=== PATIENT | male | born 1935 | race Caucasian/White ===

== ENCOUNTER 2019-11-23 14:06 | Emergency (ER) | payer MEDICARE, OTHER ==
--- NOTE | 2019-11-23 14:57 | EDM.PDOC ---
ED [facility] GENERAL MEDICAL PROBLEM - General Chief Complaint: ENT Problem Stated Complaint: SORE THROAT Time Seen by Provider: 11/23/19 14:09 - History of Present Illness INITIAL COMMENTS - FREE TEXT/NARRATIVE: HISTORY AND PHYSICAL: History of present illness: This 84-year-old male with a past medical history of hypertension, currently on anticoagulation with warfarin, and mild obesity presents emergency department with sore throat, swollen anterior cervical lymph nodes, and just not feeling well. Some runny nose. Has been taking precautions with the mask and whenever he goes into buildings wearing a mask. No known exposures to COVID-19. He does not know his current INR. He also reports, incidentally, that he fell 2 months ago landing on his back from a stepstool. He states since then he continues to have thoracic and lumbar spine pain. No radicular pain. No loss of bowel or bladder function. Review of systems: A 10-point review of systems, other than pertinent positives and negatives as stated per HPI, is otherwise negative. Past medical history: As per history of present illness and as reviewed below otherwise noncontributory. Surgical history: As per history of present illness and as reviewed below otherwise noncontributory. Social history: No reported history of drug or alcohol abuse. Family history: As per history of present illness and as reviewed below otherwise noncontributory. Physical exam: VITAL SIGNS: Reviewed. GENERAL: Very mildly ill-appearing. HEAD: No signs of head trauma. EYES: Pupils are equal. Extraocular motions intact. EARS: Hearing grossly intact. MOUTH: Oropharynx is normal. NECK: Bilateral anterior cervical lymphadenopathy. No jugular venous distention. CHEST: Chest with clear breath sounds bilaterally. No wheezes, rales, or rhonchi. CARDIAC: Regular rate and rhythm. Normal S1 and S2, without murmurs, gallops, or rubs. VASCULAR: Peripheral pulses normal and equal in all extremities. ABDOMEN: Soft, without detectable tenderness. No sign of distention. No rebound or guarding, and no masses palpated. MUSCULOSKELETAL: Good range of motion of all major joints. Extremities without clubbing, cyanosis or edema. NEUROLOGIC EXAM: Alert and oriented x 3. No focal sensory or motor deficits. Speech normal. Follows commands. PSYCHIATRIC: Mood normal. SKIN: No rash or lesions. BACK:Tenderness in the midthoracic and lower lumbar area Initial Differential Diagnosis & Plan: Low probability for COVID-19. Other etiologies including viral URI/pharyngitis considered. Essentially no tonsillar tissue is visible on exam. Some mild erythema. I feel that strep throat is very unlikely. We will test the patient for COVID-19. He is on warfarin so we will check his labs and given his probability for COVID will also check baseline labs. We will also get a chest x-ray, CT of the lumbar and thoracic spine. Definitive disposition and diagnosis as appropriate pending reevaluation and review of above. throat Pain Score (Numeric/FACES): 4 - Related Data Allergies Allergy/AdvReac Type Severity Reaction Status Date / Time celecoxib [From Celebrex] Allergy Hives Verified 11/23/19 14:24 Home Meds: Home Meds Furosemide [Lasix] 20 mg PO DAILY 11/30/13 [History] Glimepiride [Amaryl] 2 mg PO DAILY 11/30/13 [History] Isosorbide Mononitrate [Isosorbide Mononitrate ER] 60 mg PO DAILY 11/30/13 [History] Simvastatin [Zocor] 40 mg PO BEDTIME 11/30/13 [History] amLODIPine Besylate [Amlodipine Besylate] 5 mg PO DAILY 11/30/13 [History] Aspirin [Bro[place]nn Chewable] 81 mg PO DAILY 07/28/15 [History] Famotidine 40 mg PO BEDTIME 07/28/15 [History] Potassium Gluconate [Potassium] 250 mg PO DAILY 07/28/15 [History] Cyanocobalamin (Vitamin B-12) [B-12] 1,000 mcg PO DAILY 08/03/17 [History] Donepezil [Aricept] 10 mg PO BEDTIME 08/03/17 [History] Metoprolol Tartrate 100 mg PO BIDMEALS 08/03/17 [History] Warfarin [Coumadin] 7.5 mg PO SUTUTHSA@1400 08/03/17 [History] Tolterodine Tartrate [Tolterodine Tartrate ER] 4 mg PO BEDTIME 06/25/19 [History] Warfarin [Coumadin] 5 mg PO MOWEFR@1400 06/25/19 [History] Past Medical History HEENT History: Reports: Impaired Vision, Other (See Below) Other HEENT History: wearing spectacles, wearing hearing aids Cardiovascular History: Reports: Afib, High Cholesterol, Hypertension, Stents Other Cardiovascular History: Stenting Respiratory History: Reports: None Gastrointestinal History: Reports: None Genitourinary History: Reports: Prostate Disorder Musculoskeletal History: Reports: None Neurological History: Reports: None Psychiatric History: Reports: None Endocrine/Metabolic History: Reports: Diabetes, Type II Hematologic History: Reports: None Immunologic History: Reports: None Oncologic (Cancer) History: Reports: Prostate Dermatologic History: Reports: None - Infectious Disease History Infectious Disease History: Reports: Chicken Pox Other Infectious Disease History: Hepatitis - Past Surgical History Cardiovascular Surgical History: Reports: Coronary Artery Stent Male Surgical History: Reports: Other (See Below) Social & Family History - Family History Family Medical History: Noncontributory - Tobacco Use Smoking Status *Q: Never Smoker - Caffeine Use Caffeine Use: Reports: Coffee - Recreational Drug Use Recreational Drug Use: No ED ROS ENT - Review of Systems Review Of Systems: See Below (noted) ED EXAM, ENT - Physical Exam Exam: See Below (noted) Course - Vital Signs Text/Narrative:: COVID is negative. Labs are essentially normal. Given these findings I feel the patient can be discharged home. I spoke to the and informed her of the results. His CTs are negative for fracture. He is ambulatory and otherwise feeling well. Likely a viral pharyngitis. No evidence of peritonsillar abscess, deep space infection, or other life-threatening emergency. Last Recorded V/S: Last Vital Signs Temp 97.2 F 11/23/19 14:22 Pulse 91 11/23/19 14:22 Resp 18 11/23/19 14:22 BP 167/68 H 11/23/19 14:22 Pulse Ox 95 11/23/19 14:22 - Orders/Labs/Meds Orders: Active Orders 24 hr Category Date Time Status CXR [Chest 2V] [CR] Stat Exams 11/23/19 14:48 Taken Labs: Laboratory Tests 11/23/19 11/23/19 11/23/19 Range/Units 15:05 15:05 15:05 WBC 7.51 (4.0-11.0) K/uL RBC 4.78 (4.50-5.90) M/uL Hgb 15.7 (13.0-17.0) g/dL Hct 46.5 (38.0-50.0) % MCV 97.3 (80.0-98.0) fL MCH 32.8 H (27.0-32.0) pg MCHC 33.8 (31.0-37.0) g/dL RDW Std Deviation 45.6 (28.0-62.0) fl RDW Coeff of Heidi 13 (11.0-15.0) % Plt Count 192 (150-400) K/uL MPV 11.10 (7.40-12.00) fL Neut % (Auto) 70.2 (48.0-80.0) % Lymph % (Auto) 18.2 (16.0-40.0) % [place] % (Auto) 8.9 (0.0-15.0) % Eos % (Auto) 2.3 (0.0-7.0) % Baso % (Auto) 0.4 (0.0-1.5) % Neut # (Auto) 5.3 (1.4-5.7) K/uL Lymph # (Auto) 1.4 (0.6-2.4) K/uL [place] # (Auto) 0.7 (0.0-0.8) K/uL Eos # (Auto) 0.2 (0.0-0.7) K/uL Baso # (Auto) 0.0 (0.0-0.1) K/uL Nucleated RBC % 0.0 /100WBC Nucleated RBCs # 0 K/uL INR 1.25 Sodium 141 (136-148) mmol/L Potassium 3.8 (3.5-5.1) mmol/L Chloride 104 (98-107) mmol/L Carbon Dioxide 28.2 (21.0-32.0) mmol/L BUN 11 (7.0-18.0) mg/dL Creatinine 1.1 (0.8-1.3) mg/dL Est Cr Clr Drug Dosing 53.46 mL/min Estimated GFR (MDRD) > 60.0 ml/min Glucose 265 H (74-106) mg/dL Calcium 8.9 (8.5-10.1) mg/dL Ferritin (26-388) ng/mL Total Bilirubin 1.3 H (0.2-1.0) mg/dL AST 18 (15-37) IU/L ALT 11 L (14-63) IU/L Alkaline Phosphatase 62 (46-116) U/L Lactate Dehydrogenase 169 (81-234) U/L C-Reactive Protein 0.30 (0.00-0.90) mg/dL B-Natriuretic Peptide (<100) PG/ML Total Protein 7.0 (6.4-8.2) g/dL Albumin 3.7 (3.4-5.0) g/dL Globulin 3.3 (2.6-4.0) g/dL Albumin/Globulin Ratio 1.1 (0.9-1.6) COVID-19 (FRITZ) (NEGATIVE) 11/23/19 11/23/19 11/23/19 Range/Units 15:05 15:05 15:40 WBC (4.0-11.0) K/uL RBC (4.50-5.90) M/uL Hgb (13.0-17.0) g/dL Hct (38.0-50.0) % MCV (80.0-98.0) fL MCH (27.0-32.0) pg MCHC (31.0-37.0) g/dL RDW Std Deviation (28.0-62.0) fl RDW Coeff of Heidi (11.0-15.0) % Plt Count (150-400) K/uL MPV (7.40-12.00) fL Neut % (Auto) (48.0-80.0) % Lymph % (Auto) (16.0-40.0) % [place] % (Auto) (0.0-15.0) % Eos % (Auto) (0.0-7.0) % Baso % (Auto) (0.0-1.5) % Neut # (Auto) (1.4-5.7) K/uL Lymph # (Auto) (0.6-2.4) K/uL [place] # (Auto) (0.0-0.8) K/uL Eos # (Auto) (0.0-0.7) K/uL Baso # (Auto) (0.0-0.1) K/uL Nucleated RBC % /100WBC Nucleated RBCs # K/uL INR Sodium (136-148) mmol/L Potassium (3.5-5.1) mmol/L Chloride (98-107) mmol/L Carbon Dioxide (21.0-32.0) mmol/L BUN (7.0-18.0) mg/dL Creatinine (0.8-1.3) mg/dL Est Cr Clr Drug Dosing mL/min Estimated GFR (MDRD) ml/min Glucose (74-106) mg/dL Calcium (8.5-10.1) mg/dL Ferritin 543 H (26-388) ng/mL Total Bilirubin (0.2-1.0) mg/dL AST (15-37) IU/L ALT (14-63) IU/L Alkaline Phosphatase (46-116) U/L Lactate Dehydrogenase (81-234) U/L C-Reactive Protein (0.00-0.90) mg/dL B-Natriuretic Peptide 273 H (<100) PG/ML Total Protein (6.4-8.2) g/dL Albumin (3.4-5.0) g/dL Globulin (2.6-4.0) g/dL Albumin/Globulin Ratio (0.9-1.6) COVID-19 (FRITZ) NEGATIVE (NEGATIVE) Departure - Departure Time of Disposition: 16:51 Disposition: Home, Self-Care 01 Condition: Good Clinical Impression: Pharyngitis Fall Qualifiers: Encounter type: initial encounter Qualified Code(s): W19.XXXA - Unspecified fall, initial encounter - Discharge Information *PRESCRIPTION DRUG MONITORING PROGRAM REVIEWED*: Not Applicable *COPY OF PRESCRIPTION DRUG MONITORING REPORT IN PATIENT KIESHA: Not Applicable Instructions: Pharyngitis Referrals: Rohan Long MD [Primary Care Provider] - Forms: ED Department Discharge Additional Instructions: The following information is given to patients seen in the emergency department who are being discharged to home. This information is to outline your options for follow-up care. We provide all patients seen in our emergency department with a follow-up referral. The need for follow-up, as well as the timing and circumstances, are variable depending upon the specifics of your emergency department visit. If you don't have a primary care physician on staff, we will provide you with a referral. We always advise you to contact your personal physician following an emergency department visit to inform them of the circumstance of the visit and for follow-up with them and/or the need for any referrals to a consulting specialist. The emergency department will also refer you to a specialist when appropriate. This referral assures that you have the opportunity for follow-up care with a specialist. All of these measure are taken in an effort to provide you with optimal care, which includes your follow-up. Thank you for coming to the [facility] urgency department for your care today. It was Dr. Renner's pleasure to take care of you. Your COVID test is negative. Your CT scans do not show evidence of acute fracture. Your INR is 1.25. You are on warfarin. This is likely subtherapeutic. Please check in with your doctor for this. Please return the emergency department for fever, shortness of breath, worsening or any other concerns. Under all circumstances we always encourage you to contact your private physician who remains a resource for coordinating your care. When calling for follow-up care, please make the office aware that this follow-up is from your recent emergency room visit. If for any reason you are refused follow-up, please contact the [facility] Emergency Department at and asked to speak to the emergency department charge nurse. Sepsis Event Note (ED) - Evaluation Sepsis Screening Result: No Definite Risk - Focused Exam Vital Signs: Vital Signs Temp Pulse Resp BP Pulse Ox 11/23/19 14:22 97.2 F 91 18 167/68 H 95 - My Orders Last 24 Hours: My Active Orders 11/23/19 14:48 CXR [Chest 2V] [CR] Stat - Assessment/Plan Last 24 Hours: My Active Orders 11/23/19 14:48 CXR [Chest 2V] [CR] Stat
[2019-11-23 15:46] LABS: BLOOD UREA NITROGEN,BUN 11 mg/dL (7.0-18.0); CARBON DIOXIDE,CO2 28.2 mmol/L (21.0-32.0); CHLORIDE,CL 104 mmol/L (98-107); GLUCOSE RANDOM 265 mg/dL (74-106); POTASSIUM,K 3.8 mmol/L (3.5-5.1); SODIUM,NA 141 mmol/L (136-148)
--- NOTE | 2019-11-23 16:14 | CT ---
CT thoracic spine Technique: Multiple axial sections through the thoracic spine were obtained. Reconstructed coronal and sagittal images were reviewed. Findings: Vertebral bodies and posterior arches are intact. No acute fracture line is appreciated. Scattered anterior endplate osteophytes are noted. Mild degenerative apophyseal change scattered throughout the spine. No bony central canal stenosis or bony neural foraminal stenosis is seen. No abnormal subluxation is seen. Mild anterior wedging of T11 is seen which appears to be old. Impression: 1. Mild diffuse degenerative change. 2. Nothing acute is appreciated on CT study of the thoracic spine. Diagnostic code #2 This report was dictated in MDT
--- NOTE | 2019-11-23 16:14 | CT ---
CT lumbar spine Technique: Multiple axial sections were obtained from the mid T12 level inferiorly through the L5-S1 disc level. Reconstructed coronal and sagittal images were obtained. Comparison: No prior lumbar spine imaging is available. Findings: Mild disc space narrowing and vacuum phenomena is noted within the T12-L1, L1-2, L2-3 and L3-4 discs. Mild spondylolisthesis is noted at L4-5 due to degenerative apophyseal change. Small amount of epidural air is seen from the vacuum phenomena within the apophyseal joints. Vacuum phenomena is noted within the sacroiliac joints with mild degenerative sclerosis. Bony structures otherwise are osteopenic. No acute fracture is seen. Circumferential disc bulge at L4-5 with degenerative apophyseal change causes fairly severe central canal stenosis. Other levels of the central canal appear patent. Right-sided neural foraminal stenosis noted at L3-4. Mild bilateral neural foraminal stenosis is noted at L4-5. Moderate right-sided neural foraminal stenosis is noted at L5-S1. Impression: 1. Degenerative change as described above. 2. Nothing acute is appreciated. Diagnostic code #2 This report was dictated in MDT
[2019-11-23 17:09] VITALS: BP 152/80; PULSE 77
--- NOTE | 2019-11-23 17:19 | CR ---
Chest: 2 views of the chest were obtained. Comparison: Prior chest x-ray of 11/23/19. Heart size is slightly enlarged. Tortuous thoracic aorta is noted. Lungs are clear with no acute parenchymal change. Bony structures shows mild anterior wedging within the lower thoracic spine which is felt to be old. No acute osseous finding is appreciated. Impression: 1. Heart size is slightly enlarged. Nothing acute is appreciated. Diagnostic code #2 This report was dictated in MDT
== END 2019-11-23 17:08 | disposition home or self-care (01) ==
LOC: MW.ED 14:06
DX: J02.9 Acute pharyngitis, unspecified (principal); Z20.828 Contact with and (suspected) exposure to other viral communicable diseases; I10 Essential (primary) hypertension; E78.00 Pure hypercholesterolemia, unspecified; I48.91 Unspecified atrial fibrillation; Z95.5 Presence of coronary angioplasty implant and graft; E11.9 Type 2 diabetes mellitus without complications; Z88.1 Allergy status to other antibiotic agents; Z79.82 Long term (current) use of aspirin; Z79.899 Other long term (current) drug therapy
CPT/HCPCS: 36415; 71046; 72128; 72131; 80053; 82728; 83615; 83880; 85025; 85610; 86140; 99284; U0002

== ENCOUNTER 2020-02-04 14:28 | Inpatient (IN) | payer MEDICARE, OTHER ==
[2020-02-04] MEDS ORDERED: Sodium Chloride 0.9% 10 ML Syringe FLUSH PRN (14:55)
[2020-02-04] MEDS ORDERED: Sodium Chloride 0.9% 2.5 ML Syringe FLUSH PRN (14:55)
--- NOTE | 2020-02-04 15:59 | EDM.PDOC ---
ED HPI GENERAL MEDICAL PROBLEM - General Chief Complaint: Respiratory Problem Stated Complaint: SOB DRY COUGHING Time Seen by Provider: 02/04/20 14:29 Source of Information: Reports: Patient History Limitations: Reports: No Limitations - History of Present Illness INITIAL COMMENTS - FREE TEXT/NARRATIVE: HISTORY AND PHYSICAL: History of present illness: Patient is an 84-year-old male who presents to the emergency room with complaints of cough, shortness of breath, weakness and diarrhea x5 days. He states approximately a week and a half ago his was transferred to [place] for COVID-19 (he believes). He reports he has had a dry nonproductive cough for approximately 1 week. States when he is coughing and/or doing physical activity he feels short of breath. Has been having approximately 4 or 5 loose stools per day. Continues to eat and drink appropriately. States when he is position changing or leaning forward he has generalized weakness and feels unsteady. Patient denies any fever, chills, headache, change in vision, syncope or near syncope. Denies any chest pain, back pain, abdominal pain, nausea, vomiting, constipation or dysuria. Has not noted any blood in urine or stool. Past medical history of atrial fibrillation, hypertension, type 2 diabetes. Review of systems: As per history of present illness and below otherwise all systems reviewed and negative. Past medical history: As per history of present illness and as reviewed below otherwise noncontributory. Surgical history: As per history of present illness and as reviewed below otherwise noncontributory. Social history: See social history for further information Family history: As per history of present illness and as reviewed below otherwise noncontributory. Physical exam: General: Well developed and well nourished. Alert and orientated x 3. Nontoxic in appearance and in no acute distress. Vital signs are stable and have been reviewed by me. Nursing notes were reviewed. HEENT: Atraumatic, normocephalic, pupils equal and reactive bilaterally, negative for conjunctival pallor or scleral icterus, mucous membranes dry, TMs normal bilaterally, extremely [place], throat clear, neck supple, nontender, trachea midline. No drooling or trismus noted. No meningeal signs. No hot potato voice noted. Lungs: Clear to auscultation, breath sounds equal bilaterally, chest nontender. Normal work of breathing, no accessory muscles used. Heart: S1S2, regular rate and rhythm without overt murmur Abdomen: Soft, nondistended, nontender. Negative for masses or hepatosplenomegaly. Negative for costovertebral tenderness. Skin: Intact, warm, dry. No lesions or rashes noted. Hematologic: No petechiae or purpra. Mucosa appropriate color and normal nail bed color and refill. Extremities: Atraumatic, moves all extremities per self without difficulty or deficits, negative for cords or calf pain. Neurovascular unremarkable. Neuro: Awake, alert, oriented. Cranial nerves II through XII unremarkable. Cerebellum unremarkable. Motor and sensory unremarkable throughout. Exam nonfocal. Psychiatric: Mood and affect are appropriate. Normal thought process. Answering questions appropriately. Notes: Patient does have a leukocytosis with a questionable pneumonia on chest x-ray. He is COVID positive. I spoke with Dr. Ascencio, hospitalist on-call was agreeable but we should give him 1 dose of Rocephin. His BUN and creatinine are elevated, likely due to his poor oral intake and his frequent diarrhea, will give a 500 mL bolus and reassess. Patient will be admitted to [facility] as inpatient with telemetry. Patient was made aware. He did give me permission to talk to his family about the admission, I did call Arturo and his daughter and discussed this. They state they are relieved as the patient's simply was discharged from [place] and she is the sole caregiver of the patient. They were concerned he was not eating or taking his pills as the patient's was not feeling well still. Diagnostics: CBC, CMP, Troponin, EKG, CXR, COVID Therapeutics: Rocephin, 500 mL bolus NS Impression: Pneumonia related to COVID-19 Dehydration Plan: Inpatient admission to [facility] with telemetry Definitive disposition and diagnosis as appropriate pending reevaluation and review of above. - Related Data Allergies Allergy/AdvReac Type Severity Reaction Status Date / Time celecoxib [From Celebrex] Allergy Hives Verified 02/04/20 15:58 Home Meds: Home Meds Furosemide [Lasix] 20 mg PO DAILY 11/30/13 [History] Glimepiride [Amaryl] 2 mg PO DAILY 11/30/13 [History] Isosorbide Mononitrate [Isosorbide Mononitrate ER] 60 mg PO DAILY 11/30/13 [History] Simvastatin [Zocor] 40 mg PO BEDTIME 11/30/13 [History] amLODIPine Besylate [Amlodipine Besylate] 5 mg PO DAILY 11/30/13 [History] Aspirin [Brooklynn Chewable] 81 mg PO DAILY 07/28/15 [History] Famotidine 40 mg PO BEDTIME 07/28/15 [History] Potassium Gluconate [Potassium] 250 mg PO DAILY 07/28/15 [History] Cyanocobalamin (Vitamin B-12) [B-12] 1,000 mcg PO DAILY 08/03/17 [History] Donepezil [Aricept] 10 mg PO BEDTIME 08/03/17 [History] Metoprolol Tartrate 100 mg PO BIDMEALS 08/03/17 [History] Warfarin [Coumadin] 7.5 mg PO SUTUTHSA@1400 08/03/17 [History] Tolterodine Tartrate [Tolterodine Tartrate ER] 4 mg PO BEDTIME 06/25/19 [History] Warfarin [Coumadin] 5 mg PO MOWEFR@1400 06/25/19 [History] Past Medical History HEENT History: Reports: Impaired Vision, Other (See Below) Other HEENT History: wearing spectacles, wearing hearing aids Cardiovascular History: Reports: Afib, High Cholesterol, Hypertension, Stents Other Cardiovascular History: Stenting Respiratory History: Reports: None Gastrointestinal History: Reports: None Genitourinary History: Reports: Prostate Disorder Musculoskeletal History: Reports: None Neurological History: Reports: None Psychiatric History: Reports: None Endocrine/Metabolic History: Reports: Diabetes, Type II Hematologic History: Reports: None Immunologic History: Reports: None Oncologic (Cancer) History: Reports: Prostate Dermatologic History: Reports: None - Infectious Disease History Infectious Disease History: Reports: Chicken Pox Other Infectious Disease History: Hepatitis - Past Surgical History Cardiovascular Surgical History: Reports: Coronary Artery Stent Male Surgical History: Reports: Other (See Below) Social & Family History - Family History Family Medical History: Noncontributory - Caffeine Use Caffeine Use: Reports: Coffee ED ROS GENERAL - Review of Systems Review Of Systems: Comprehensive ROS is negative, except as noted in HPI. ED EXAM, GENERAL - Physical Exam Exam: See Below (See dictation) Course - Vital Signs Last Recorded V/S: Last Vital Signs Temp 96.4 F L 02/04/20 15:53 Pulse 94 02/04/20 15:53 Resp 16 02/04/20 15:53 BP 114/54 L 02/04/20 15:53 Pulse Ox 96 02/04/20 15:53 - Orders/Labs/Meds Orders: Active Orders 24 hr Category Date Time Status EKG Documentation Completion [RC] STAT Care 02/04/20 14:55 Active Sodium Chloride 0.9% [Normal Saline] 500 ml Med 02/04/20 17:15 Active IV STAT Sodium Chloride 0.9% [Saline Flush] Med 02/04/20 14:55 Active 10 ml FLUSH ASDIRECTED PRN Sodium Chloride 0.9% [Saline Flush] Med 02/04/20 14:55 Active 2.5 ml FLUSH ASDIRECTED PRN Saline Lock Insert [OM.PC] Stat Oth 02/04/20 14:55 Ordered Medication Orders Sodium Chloride (Normal Saline) 500 mls @ 999 mls/hr IV STAT DARREN Last Admin: 02/04/20 18:12 Dose: 999 mls/hr Documented by: KAREN Sodium Chloride (Saline Flush) 10 ml FLUSH ASDIRECTED PRN PRN Reason: Keep Vein Open Sodium Chloride (Saline Flush) 2.5 ml FLUSH ASDIRECTED PRN PRN Reason: Keep Vein Open Labs: Laboratory Tests 02/04/20 02/04/20 02/04/20 Range/Units 16:10 16:10 16:10 WBC 11.32 H (4.0-11.0) K/uL RBC 4.65 (4.50-5.90) M/uL Hgb 15.2 (13.0-17.0) g/dL Hct 45.5 (38.0-50.0) % MCV 97.8 (80.0-98.0) fL MCH 32.7 H (27.0-32.0) pg MCHC 33.4 (31.0-37.0) g/dL RDW Std Deviation 46.0 (28.0-62.0) fl RDW Coeff of Heidi 13 (11.0-15.0) % Plt Count 182 (150-400) K/uL MPV 11.90 (7.40-12.00) fL Neut % (Auto) 86.9 H (48.0-80.0) % Lymph % (Auto) 6.4 L (16.0-40.0) % [place] % (Auto) 6.5 (0.0-15.0) % Eos % (Auto) 0.0 (0.0-7.0) % Baso % (Auto) 0.2 (0.0-1.5) % Neut # (Auto) 9.8 H (1.4-5.7) K/uL Lymph # (Auto) 0.7 (0.6-2.4) K/uL [place] # (Auto) 0.7 (0.0-0.8) K/uL Eos # (Auto) 0.0 (0.0-0.7) K/uL Baso # (Auto) 0.0 (0.0-0.1) K/uL Nucleated RBC % 0.0 /100WBC Nucleated RBCs # 0 K/uL INR Sodium 143 (136-148) mmol/L Potassium 3.6 (3.5-5.1) mmol/L Chloride 106 (98-107) mmol/L Carbon Dioxide 25.7 (21.0-32.0) mmol/L BUN 23 H (7.0-18.0) mg/dL Creatinine 1.4 H (0.8-1.3) mg/dL Est Cr Clr Drug Dosing 42.00 mL/min Estimated GFR (MDRD) 48.5 ml/min Glucose 257 H (74-106) mg/dL Calcium 9.0 (8.5-10.1) mg/dL Total Bilirubin 1.0 (0.2-1.0) mg/dL AST 28 (15-37) IU/L ALT 12 L (14-63) IU/L Alkaline Phosphatase 43 L (46-116) U/L Troponin I < 0.050 (0.000-0.056) ng/mL Total Protein 7.4 (6.4-8.2) g/dL Albumin 3.1 L (3.4-5.0) g/dL Globulin 4.3 H (2.6-4.0) g/dL Albumin/Globulin Ratio 0.7 L (0.9-1.6) SARS-CoV-2 RNA (FRITZ) (NEGATIVE) 02/04/20 02/04/20 Range/Units 16:10 17:17 WBC (4.0-11.0) K/uL RBC (4.50-5.90) M/uL Hgb (13.0-17.0) g/dL Hct (38.0-50.0) % MCV (80.0-98.0) fL MCH (27.0-32.0) pg MCHC (31.0-37.0) g/dL RDW Std Deviation (28.0-62.0) fl RDW Coeff of Heidi (11.0-15.0) % Plt Count (150-400) K/uL MPV (7.40-12.00) fL Neut % (Auto) (48.0-80.0) % Lymph % (Auto) (16.0-40.0) % [place] % (Auto) (0.0-15.0) % Eos % (Auto) (0.0-7.0) % Baso % (Auto) (0.0-1.5) % Neut # (Auto) (1.4-5.7) K/uL Lymph # (Auto) (0.6-2.4) K/uL [place] # (Auto) (0.0-0.8) K/uL Eos # (Auto) (0.0-0.7) K/uL Baso # (Auto) (0.0-0.1) K/uL Nucleated RBC % /100WBC Nucleated RBCs # K/uL INR 1.10 Sodium (136-148) mmol/L Potassium (3.5-5.1) mmol/L Chloride (98-107) mmol/L Carbon Dioxide (21.0-32.0) mmol/L BUN (7.0-18.0) mg/dL Creatinine (0.8-1.3) mg/dL Est Cr Clr Drug Dosing mL/min Estimated GFR (MDRD) ml/min Glucose (74-106) mg/dL Calcium (8.5-10.1) mg/dL Total Bilirubin (0.2-1.0) mg/dL AST (15-37) IU/L ALT (14-63) IU/L Alkaline Phosphatase (46-116) U/L Troponin I (0.000-0.056) ng/mL Total Protein (6.4-8.2) g/dL Albumin (3.4-5.0) g/dL Globulin (2.6-4.0) g/dL Albumin/Globulin Ratio (0.9-1.6) SARS-CoV-2 RNA (FRITZ) POSITIVE H (NEGATIVE) Meds: Medications Generic Name Dose Route Start Last Admin Trade Name Lisandra PRN Reason Stop Dose Admin Sodium Chloride 500 mls @ 999 mls/hr 02/04/20 17:15 02/04/20 18:12 Normal Saline IV 999 mls/hr STAT DARREN Administration Sodium Chloride 10 ml 02/04/20 14:55 Saline Flush FLUSH ASDIRECTED PRN Keep Vein Open Sodium Chloride 2.5 ml 02/04/20 14:55 Saline Flush FLUSH ASDIRECTED PRN Keep Vein Open Discontinued Medications Generic Name Dose Route Start Last Admin Trade Name Lisandra PRN Reason Stop Dose Admin Ceftriaxone Sodium/Dextrose 1 50 mls @ 100 mls/hr 02/04/20 17:08 02/04/20 18:13 gm/ Premix IV 02/04/20 17:37 100 mls/hr ONETIME ONE Administration Departure - Departure Time of Disposition: 18:53 Disposition: Admitted As Inpatient 68 Clinical Impression: Pneumonia due to COVID-19 virus, Dehydration - Discharge Information Sepsis Event Note (ED) - Focused Exam Vital Signs: Vital Signs Temp Pulse Resp BP Pulse Ox 02/04/20 15:53 96.4 F L 94 16 114/54 L 96 - My Orders Last 24 Hours: My Active Orders 02/04/20 14:55 EKG Documentation Completion [RC] STAT Sodium Chloride 0.9% [Saline Flush] 10 ml FLUSH ASDIRECTED PRN Sodium Chloride 0.9% [Saline Flush] 2.5 ml FLUSH ASDIRECTED PRN Saline Lock Insert [OM.PC] Stat 02/04/20 17:15 Sodium Chloride 0.9% [Normal Saline] 500 ml IV STAT - Assessment/Plan Last 24 Hours: My Active Orders 02/04/20 14:55 EKG Documentation Completion [RC] STAT Sodium Chloride 0.9% [Saline Flush] 10 ml FLUSH ASDIRECTED PRN Sodium Chloride 0.9% [Saline Flush] 2.5 ml FLUSH ASDIRECTED PRN Saline Lock Insert [OM.PC] Stat 02/04/20 17:15 Sodium Chloride 0.9% [Normal Saline] 500 ml IV STAT
--- NOTE | 2020-02-04 16:30 | CR ---
Chest: AP portable view of the chest was obtained. Comparison: Previous chest x-ray of 11/23/19. Heart size appears within normal limits for portable technique. Tortuous thoracic aorta is seen. Mild increased density within the right lung base. Lungs otherwise are clear. Bony structures are unremarkable. Impression: 1. Slight increased density within right lung base. Findings could represent early area of pneumonia which could be bacterial or viral. 2. Portable chest x-ray is otherwise unremarkable. Diagnostic code #3 This report was dictated in MDT
[2020-02-04 16:39] LABS: CARBON DIOXIDE,CO2 25.7 mmol/L (21.0-32.0); POTASSIUM,K 3.6 mmol/L (3.5-5.1)
[2020-02-04] MEDS ORDERED: cefTRIAXone 1 GM in Premix Bag 1 BAG IV ONE (17:08)
[2020-02-04] MEDS ORDERED: Sodium Chloride 0.9% 500 ML IV SCH (17:15)
[2020-02-04] MEDS ORDERED: Ondansetron 4 MG/2 ML SDV IVPUSH PRN (20:02)
[2020-02-04] MEDS ORDERED: Sodium Chloride 0.9% 1,000 ML IV SCH (20:15)
[2020-02-04] MEDS ORDERED: Metoprolol Tartrate 50 MG Tab PO ONE (21:48)
--- NOTE | 2020-02-04 23:38 | PCM.HP.2 ---
H&P History of Present Illness - General Date of Service: 02/04/20 Admit Problem/Dx: Admission Diagnosis/Problem Admission Diagnosis/Problem Pneumonia - History of Present Illness Initial Comments - Free Text/Narative: 84 yo male with pmh of DM, CAD, CHF, a.fib who presents with several day history of fatigue, generalized weakness, and diarrhea. Patient denies any fevers, cough, shortness of breath, nausea or chest pain. Patient's has COVID. - Related Data Allergies/Adverse Reactions: Allergies Allergy/AdvReac Type Severity Reaction Status Date / Time celecoxib [From Celebrex] Allergy Hives Verified 02/04/20 20:14 Home Medications: Home Meds Furosemide [Lasix] 40 mg PO DAILY@0900,1200 11/30/13 [History] Glimepiride [Amaryl] 2 mg PO DAILY 11/30/13 [History] Isosorbide Mononitrate [Isosorbide Mononitrate ER] 60 mg PO DAILY 11/30/13 [History] Simvastatin [Zocor] 40 mg PO BEDTIME 11/30/13 [History] amLODIPine Besylate [Amlodipine Besylate] 5 mg PO BID 11/30/13 [History] Famotidine 40 mg PO BEDTIME 07/28/15 [History] Donepezil [Aricept] 10 mg PO BEDTIME 08/03/17 [History] Metoprolol Tartrate 100 mg PO BIDMEALS 08/03/17 [History] Tolterodine Tartrate [Tolterodine Tartrate ER] 4 mg PO BEDTIME 06/25/19 [History] Rivaroxaban [Xarelto] 20 mg PO DAILY 02/05/20 [History] Past Medical History HEENT History: Reports: Impaired Vision, Other (See Below) Other HEENT History: wearing spectacles, wearing hearing aids Cardiovascular History: Reports: Afib, High Cholesterol, Hypertension, Stents Other Cardiovascular History: Stenting Respiratory History: Reports: None Gastrointestinal History: Reports: None Genitourinary History: Reports: Prostate Disorder Musculoskeletal History: Reports: None Neurological History: Reports: None Psychiatric History: Reports: None Endocrine/Metabolic History: Reports: Diabetes, Type II Hematologic History: Reports: None Immunologic History: Reports: None Oncologic (Cancer) History: Reports: Prostate Dermatologic History: Reports: None - Infectious Disease History Infectious Disease History: Reports: Chicken Pox Other Infectious Disease History: Hepatitis - Past Surgical History Cardiovascular Surgical History: Reports: Coronary Artery Stent Male Surgical History: Reports: Other (See Below) Social & Family History - Family History Family Medical History: Noncontributory - Tobacco Use Smoking Status *Q: Never Smoker Second Hand Smoke Exposure: No - Caffeine Use Caffeine Use: Reports: None - Recreational Drug Use Recreational Drug Use: No H&P Review of Systems - Review of Systems: Review Of Systems: Comprehensive ROS is negative, except as noted in HPI. Exam - Exam Exam: See Below - Vital Signs Vital Signs: Last Vital Signs Temp 36.7 C 02/04/20 19:30 Pulse 106 H 02/04/20 22:05 Resp 17 02/04/20 19:30 BP 146/70 H 02/04/20 22:05 Pulse Ox 93 L 02/04/20 19:30 Weight: 108.862 kg - Exam General: Alert, Oriented HEENT: Mucosa Moist & [place] Lungs: Clear to Auscultation, Normal Respiratory Effort Cardiovascular: Regular Rate, Irregular Rhythm GI/Abdominal Exam: Normal Bowel Sounds, Soft, Non-Tender Extremities: Non-Tender, No Pedal Edema Skin: Warm, Dry, Intact - Patient Data Lab Results Last 24 hrs: Laboratory Results - last 24 hr 02/04/20 02/04/20 02/04/20 Range/Units 16:10 16:10 16:10 WBC 11.32 H (4.0-11.0) K/uL RBC 4.65 (4.50-5.90) M/uL Hgb 15.2 (13.0-17.0) g/dL Hct 45.5 (38.0-50.0) % MCV 97.8 (80.0-98.0) fL MCH 32.7 H (27.0-32.0) pg MCHC 33.4 (31.0-37.0) g/dL RDW Std Deviation 46.0 (28.0-62.0) fl RDW Coeff of Heidi 13 (11.0-15.0) % Plt Count 182 (150-400) K/uL MPV 11.90 (7.40-12.00) fL Neut % (Auto) 86.9 H (48.0-80.0) % Lymph % (Auto) 6.4 L (16.0-40.0) % [place] % (Auto) 6.5 (0.0-15.0) % Eos % (Auto) 0.0 (0.0-7.0) % Baso % (Auto) 0.2 (0.0-1.5) % Neut # (Auto) 9.8 H (1.4-5.7) K/uL Lymph # (Auto) 0.7 (0.6-2.4) K/uL Sunflower # (Auto) 0.7 (0.0-0.8) K/uL Eos # (Auto) 0.0 (0.0-0.7) K/uL Baso # (Auto) 0.0 (0.0-0.1) K/uL Nucleated RBC % 0.0 /100WBC Nucleated RBCs # 0 K/uL INR Sodium 143 (136-148) mmol/L Potassium 3.6 (3.5-5.1) mmol/L Chloride 106 (98-107) mmol/L Carbon Dioxide 25.7 (21.0-32.0) mmol/L BUN 23 H (7.0-18.0) mg/dL Creatinine 1.4 H (0.8-1.3) mg/dL Est Cr Clr Drug Dosing 42.00 mL/min Estimated GFR (MDRD) 48.5 ml/min Glucose 257 H (74-106) mg/dL Calcium 9.0 (8.5-10.1) mg/dL Magnesium (1.8-2.4) mg/dL Total Bilirubin 1.0 (0.2-1.0) mg/dL AST 28 (15-37) IU/L ALT 12 L (14-63) IU/L Alkaline Phosphatase 43 L (46-116) U/L Troponin I < 0.050 (0.000-0.056) ng/mL Total Protein 7.4 (6.4-8.2) g/dL Albumin 3.1 L (3.4-5.0) g/dL Globulin 4.3 H (2.6-4.0) g/dL Albumin/Globulin Ratio 0.7 L (0.9-1.6) SARS-CoV-2 RNA (FRITZ) (NEGATIVE) 02/04/20 02/04/20 02/04/20 Range/Units 16:10 16:10 17:17 WBC (4.0-11.0) K/uL RBC (4.50-5.90) M/uL Hgb (13.0-17.0) g/dL Hct (38.0-50.0) % MCV (80.0-98.0) fL MCH (27.0-32.0) pg MCHC (31.0-37.0) g/dL RDW Std Deviation (28.0-62.0) fl RDW Coeff of Heidi (11.0-15.0) % Plt Count (150-400) K/uL MPV (7.40-12.00) fL Neut % (Auto) (48.0-80.0) % Lymph % (Auto) (16.0-40.0) % [place]flower % (Auto) (0.0-15.0) % Eos % (Auto) (0.0-7.0) % Baso % (Auto) (0.0-1.5) % Neut # (Auto) (1.4-5.7) K/uL Lymph # (Auto) (0.6-2.4) K/uL Sunflower # (Auto) (0.0-0.8) K/uL Eos # (Auto) (0.0-0.7) K/uL Baso # (Auto) (0.0-0.1) K/uL Nucleated RBC % /100WBC Nucleated RBCs # K/uL INR 1.10 Sodium (136-148) mmol/L Potassium (3.5-5.1) mmol/L Chloride (98-107) mmol/L Carbon Dioxide (21.0-32.0) mmol/L BUN (7.0-18.0) mg/dL Creatinine (0.8-1.3) mg/dL Est Cr Clr Drug Dosing mL/min Estimated GFR (MDRD) ml/min Glucose (74-106) mg/dL Calcium (8.5-10.1) mg/dL Magnesium 2.2 (1.8-2.4) mg/dL Total Bilirubin (0.2-1.0) mg/dL AST (15-37) IU/L ALT (14-63) IU/L Alkaline Phosphatase (46-116) U/L Troponin I (0.000-0.056) ng/mL Total Protein (6.4-8.2) g/dL Albumin (3.4-5.0) g/dL Globulin (2.6-4.0) g/dL Albumin/Globulin Ratio (0.9-1.6) SARS-CoV-2 RNA (FRITZ) POSITIVE H (NEGATIVE) Result Diagrams: 02/05/20 05:58 02/05/20 05:58 Sepsis Event Note - Evaluation Sepsis Screening Result: No Definite Risk - Focused Exam Vital Signs: Vital Signs Temp Temp Pulse Pulse Resp BP BP 02/04/20 22:05 106 H 146/70 H 02/04/20 19:30 36.7 C 86 17 146/70 H 02/04/20 18:48 94 134/82 02/04/20 17:49 87 147/72 H 02/04/20 15:53 35.8 C L 94 16 114/54 L Pulse Ox 02/04/20 22:05 02/04/20 19:30 93 L 02/04/20 18:48 92 L 02/04/20 17:49 92 L 02/04/20 15:53 96 Problem List Initiated/Reviewed/Updated: Yes Orders Last 24hrs: Active Orders 24 hr Category Date Time Status Admission Status [Patient Status] [ADT] Stat ADT 02/04/20 18:06 Active Accu Check [Blood Glucose Check, Bedside] [RC] TIDAC Care 02/04/20 23:24 Ordered Telemetry Monitoring [Cardiac Monitoring] [RC] Q8H Care 02/04/20 18:49 Active Vital Signs [RC] Q4H Care 02/04/20 20:03 Active [employer] Diet [DIET] Diet 02/05/20 Breakfast Active BASIC METABOLIC PANEL,BMP [CHEM] AM Lab 02/05/20 05:11 Ordered BASIC METABOLIC PANEL,BMP [CHEM] AM Lab 02/06/20 05:11 Ordered CBC WITH AUTO DIFF [HEME] AM Lab 02/05/20 05:11 Ordered CBC WITH AUTO DIFF [HEME] AM Lab 02/06/20 05:11 Ordered INR,PT,PROTHROMBIN TIME [COAG] AM Lab 02/05/20 05:11 Ordered INR,PT,PROTHROMBIN TIME [COAG] AM Lab 02/06/20 05:11 Ordered INR,PT,PROTHROMBIN TIME [COAG] AM Lab 02/07/20 05:11 Ordered INR,PT,PROTHROMBIN TIME [COAG] AM Lab 02/08/20 05:11 Ordered Insulin Aspart [NovoLOG] Med 02/05/20 07:30 Active See Protocol SUBCUT TIDAC Metoprolol Tartrate [Lopressor] Med 02/05/20 08:00 Active 100 mg PO BIDMEALS Ondansetron [Zofran] Med 02/04/20 20:02 Active 4 mg IVPUSH Q6H PRN Sodium Chloride 0.9% [Normal Saline] 1,000 ml Med 02/04/20 20:15 Active IV ASDIRECTED Sodium Chloride 0.9% [Saline Flush] Med 02/04/20 14:55 Active 10 ml FLUSH ASDIRECTED PRN Sodium Chloride 0.9% [Saline Flush] Med 02/04/20 14:55 Active 2.5 ml FLUSH ASDIRECTED PRN Warfarin Dosing [Coumadin Ask] Med 02/04/20 23:00 Pending 1 each PO DAILY cefTRIAXone [Rocephin in Dextrose,Iso-Osm 1 GM/50 ML] Med 02/05/20 18:00 Active 50 ml IV Q24H Saline Lock Insert [OM.PC] Stat Oth 02/04/20 14:55 Ordered Medication Orders Sodium Chloride (Normal Saline) 1,000 mls @ 50 mls/hr IV ASDIRECTED [facility] Last Admin: 02/04/20 20:46 Dose: 50 mls/hr Documented by: MAMIE Ceftriaxone Sodium/Dextrose (Rocephin In Dextrose,Iso-Osm 1 Gm/50 Ml) 50 mls @ 100 mls/hr IV Q24H [facility] Insulin Aspart (Novolog) 0 unit SUBCUT TIDAC [facility]; Protocol Metoprolol Tartrate (Lopressor) 100 mg PO BIDMEALS [facility] Ondansetron HCl (Zofran) 4 mg IVPUSH Q6H PRN PRN Reason: Nausea/Vomiting Sodium Chloride (Saline Flush) 10 ml FLUSH ASDIRECTED PRN PRN Reason: Keep Vein Open Sodium Chloride (Saline Flush) 2.5 ml FLUSH ASDIRECTED PRN PRN Reason: Keep Vein Open Warfarin Sodium (Coumadin Ask) 1 each PO DAILY [facility] Assessment/Plan Comment:: 84 yo male admitted for COVID infection. Patient appears dehydrated will give IV hydration and monitor closely for signs of fluid overload. CXR showed right lower lung infiltrate. Treating with Rocephin and azithromycin for possible pneumonia.
[2020-02-05 06:26] LABS: CARBON DIOXIDE,CO2 28.4 mmol/L (21.0-32.0); POTASSIUM,K 3.5 mmol/L (3.5-5.1)
[2020-02-05] MEDS: Insulin Aspart 100 Units/ML 3 ML Pen SUBCUT SCH ×3 (07:20→19:03)
[2020-02-05] MEDS: Metoprolol Tartrate 25 MG Tab PO SCH ×2 (10:41→17:45)
[2020-02-05] MEDS: Rivaroxaban 10 MG Tab PO SCH (10:42)
[2020-02-05] MEDS: Isosorbide Mononitrate 60 MG Tab.ER PO SCH (10:42)
[2020-02-05] MEDS: amLODIPine 5 MG Tab PO SCH ×2 (10:42→21:45)
[2020-02-05] MEDS: Glimepiride 2 MG Tab PO SCH (10:44)
--- NOTE | 2020-02-05 13:31 | PCM.PN ---
- General Info Date of Service: 02/05/20 - Review of Systems Systems Review Comment:: Patient feeling stronger, no shortness of breath, no diarrhea - Patient Data Vitals - Most Recent: Last Vital Signs Temp 35.8 C L 02/05/20 10:00 Pulse 74 02/05/20 10:41 Resp 16 02/05/20 10:00 BP 122/79 02/05/20 10:42 Pulse Ox 92 L 02/05/20 10:00 Weight - Most Recent: 108.862 kg I&O - Last 24 Hours: Intake & Output 02/04/20 02/05/20 02/05/20 22:59 06:59 14:59 Intake Total 500 Output Total 0 Balance 500 Lab Results Last 24 Hours: Laboratory Results - last 24 hr 02/04/20 02/04/20 02/04/20 Range/Units 16:10 16:10 16:10 WBC 11.32 H (4.0-11.0) K/uL RBC 4.65 (4.50-5.90) M/uL Hgb 15.2 (13.0-17.0) g/dL Hct 45.5 (38.0-50.0) % MCV 97.8 (80.0-98.0) fL MCH 32.7 H (27.0-32.0) pg MCHC 33.4 (31.0-37.0) g/dL RDW Std Deviation 46.0 (28.0-62.0) fl RDW Coeff of Heidi 13 (11.0-15.0) % Plt Count 182 (150-400) K/uL MPV 11.90 (7.40-12.00) fL Neut % (Auto) 86.9 H (48.0-80.0) % Lymph % (Auto) 6.4 L (16.0-40.0) % Kleberg % (Auto) 6.5 (0.0-15.0) % Eos % (Auto) 0.0 (0.0-7.0) % Baso % (Auto) 0.2 (0.0-1.5) % Neut # (Auto) 9.8 H (1.4-5.7) K/uL Lymph # (Auto) 0.7 (0.6-2.4) K/uL Kleberg # (Auto) 0.7 (0.0-0.8) K/uL Eos # (Auto) 0.0 (0.0-0.7) K/uL Baso # (Auto) 0.0 (0.0-0.1) K/uL Nucleated RBC % 0.0 /100WBC Nucleated RBCs # 0 K/uL INR Sodium 143 (136-148) mmol/L Potassium 3.6 (3.5-5.1) mmol/L Chloride 106 (98-107) mmol/L Carbon Dioxide 25.7 (21.0-32.0) mmol/L BUN 23 H (7.0-18.0) mg/dL Creatinine 1.4 H (0.8-1.3) mg/dL Est Cr Clr Drug Dosing 42.00 mL/min Estimated GFR (MDRD) 48.5 ml/min Glucose 257 H (74-106) mg/dL POC Glucose (60-110) mg/dL Calcium 9.0 (8.5-10.1) mg/dL Magnesium (1.8-2.4) mg/dL Total Bilirubin 1.0 (0.2-1.0) mg/dL AST 28 (15-37) IU/L ALT 12 L (14-63) IU/L Alkaline Phosphatase 43 L (46-116) U/L Troponin I < 0.050 (0.000-0.056) ng/mL Total Protein 7.4 (6.4-8.2) g/dL Albumin 3.1 L (3.4-5.0) g/dL Globulin 4.3 H (2.6-4.0) g/dL Albumin/Globulin Ratio 0.7 L (0.9-1.6) SARS-CoV-2 RNA (FRITZ) (NEGATIVE) 02/04/20 02/04/20 02/04/20 Range/Units 16:10 16:10 17:17 WBC (4.0-11.0) K/uL RBC (4.50-5.90) M/uL Hgb (13.0-17.0) g/dL Hct (38.0-50.0) % MCV (80.0-98.0) fL MCH (27.0-32.0) pg MCHC (31.0-37.0) g/dL RDW Std Deviation (28.0-62.0) fl RDW Coeff of Heidi (11.0-15.0) % Plt Count (150-400) K/uL MPV (7.40-12.00) fL Neut % (Auto) (48.0-80.0) % Lymph % (Auto) (16.0-40.0) % Kleberg % (Auto) (0.0-15.0) % Eos % (Auto) (0.0-7.0) % Baso % (Auto) (0.0-1.5) % Neut # (Auto) (1.4-5.7) K/uL Lymph # (Auto) (0.6-2.4) K/uL Kleberg # (Auto) (0.0-0.8) K/uL Eos # (Auto) (0.0-0.7) K/uL Baso # (Auto) (0.0-0.1) K/uL Nucleated RBC % /100WBC Nucleated RBCs # K/uL INR 1.10 Sodium (136-148) mmol/L Potassium (3.5-5.1) mmol/L Chloride (98-107) mmol/L Carbon Dioxide (21.0-32.0) mmol/L BUN (7.0-18.0) mg/dL Creatinine (0.8-1.3) mg/dL Est Cr Clr Drug Dosing mL/min Estimated GFR (MDRD) ml/min Glucose (74-106) mg/dL POC Glucose (60-110) mg/dL Calcium (8.5-10.1) mg/dL Magnesium 2.2 (1.8-2.4) mg/dL Total Bilirubin (0.2-1.0) mg/dL AST (15-37) IU/L ALT (14-63) IU/L Alkaline Phosphatase (46-116) U/L Troponin I (0.000-0.056) ng/mL Total Protein (6.4-8.2) g/dL Albumin (3.4-5.0) g/dL Globulin (2.6-4.0) g/dL Albumin/Globulin Ratio (0.9-1.6) SARS-CoV-2 RNA (FRITZ) POSITIVE H (NEGATIVE) 02/05/20 02/05/20 02/05/20 Range/Units 05:58 05:58 05:58 WBC 8.58 (4.0-11.0) K/uL RBC 4.36 L (4.50-5.90) M/uL Hgb 14.2 (13.0-17.0) g/dL Hct 42.4 (38.0-50.0) % MCV 97.2 (80.0-98.0) fL MCH 32.6 H (27.0-32.0) pg MCHC 33.5 (31.0-37.0) g/dL RDW Std Deviation 45.7 (28.0-62.0) fl RDW Coeff of Heidi 13 (11.0-15.0) % Plt Count 171 (150-400) K/uL MPV 11.60 (7.40-12.00) fL Neut % (Auto) 82.4 H (48.0-80.0) % Lymph % (Auto) 9.8 L (16.0-40.0) % Kleberg % (Auto) 7.6 (0.0-15.0) % Eos % (Auto) 0.0 (0.0-7.0) % Baso % (Auto) 0.2 (0.0-1.5) % Neut # (Auto) 7.1 H (1.4-5.7) K/uL Lymph # (Auto) 0.8 (0.6-2.4) K/uL Kleberg # (Auto) 0.7 (0.0-0.8) K/uL Eos # (Auto) 0.0 (0.0-0.7) K/uL Baso # (Auto) 0.0 (0.0-0.1) K/uL Nucleated RBC % 0.0 /100WBC Nucleated RBCs # 0 K/uL INR 1.10 Sodium 145 (136-148) mmol/L Potassium 3.5 (3.5-5.1) mmol/L Chloride 108 H (98-107) mmol/L Carbon Dioxide 28.4 (21.0-32.0) mmol/L BUN 21 H (7.0-18.0) mg/dL Creatinine 1.2 (0.8-1.3) mg/dL Est Cr Clr Drug Dosing 49.00 mL/min Estimated GFR (MDRD) 58.0 ml/min Glucose 230 H (74-106) mg/dL POC Glucose (60-110) mg/dL Calcium 8.5 (8.5-10.1) mg/dL Magnesium (1.8-2.4) mg/dL Total Bilirubin (0.2-1.0) mg/dL AST (15-37) IU/L ALT (14-63) IU/L Alkaline Phosphatase (46-116) U/L Troponin I (0.000-0.056) ng/mL Total Protein (6.4-8.2) g/dL Albumin (3.4-5.0) g/dL Globulin (2.6-4.0) g/dL Albumin/Globulin Ratio (0.9-1.6) SARS-CoV-2 RNA (FRITZ) (NEGATIVE) 02/05/20 Range/Units 07:09 WBC (4.0-11.0) K/uL RBC (4.50-5.90) M/uL Hgb (13.0-17.0) g/dL Hct (38.0-50.0) % MCV (80.0-98.0) fL MCH (27.0-32.0) pg MCHC (31.0-37.0) g/dL RDW Std Deviation (28.0-62.0) fl RDW Coeff of Heidi (11.0-15.0) % Plt Count (150-400) K/uL MPV (7.40-12.00) fL Neut % (Auto) (48.0-80.0) % Lymph % (Auto) (16.0-40.0) % Kleberg % (Auto) (0.0-15.0) % Eos % (Auto) (0.0-7.0) % Baso % (Auto) (0.0-1.5) % Neut # (Auto) (1.4-5.7) K/uL Lymph # (Auto) (0.6-2.4) K/uL Kleberg # (Auto) (0.0-0.8) K/uL Eos # (Auto) (0.0-0.7) K/uL Baso # (Auto) (0.0-0.1) K/uL Nucleated RBC % /100WBC Nucleated RBCs # K/uL INR Sodium (136-148) mmol/L Potassium (3.5-5.1) mmol/L Chloride (98-107) mmol/L Carbon Dioxide (21.0-32.0) mmol/L BUN (7.0-18.0) mg/dL Creatinine (0.8-1.3) mg/dL Est Cr Clr Drug Dosing mL/min Estimated GFR (MDRD) ml/min Glucose (74-106) mg/dL POC Glucose 215 H (60-110) mg/dL Calcium (8.5-10.1) mg/dL Magnesium (1.8-2.4) mg/dL Total Bilirubin (0.2-1.0) mg/dL AST (15-37) IU/L ALT (14-63) IU/L Alkaline Phosphatase (46-116) U/L Troponin I (0.000-0.056) ng/mL Total Protein (6.4-8.2) g/dL Albumin (3.4-5.0) g/dL Globulin (2.6-4.0) g/dL Albumin/Globulin Ratio (0.9-1.6) SARS-CoV-2 RNA (FRITZ) (NEGATIVE) Med Orders - Current: Current Medications Amlodipine Besylate (Norvasc) 5 mg PO BID [facility] Last Admin: 02/05/20 10:42 Dose: 5 mg Documented by: Donepezil HCl (Aricept) 10 mg PO BEDTIME [facility] Glimepiride (Amaryl) 2 mg PO DAILY [facility] Last Admin: 02/05/20 10:44 Dose: Not Given Documented by: Ceftriaxone Sodium/Dextrose (Rocephin In Dextrose,Iso-Osm 1 Gm/50 Ml) 50 mls @ 100 mls/hr IV Q24H [facility] Insulin Aspart (Novolog) 0 unit SUBCUT TIDAC [facility]; Protocol Last Admin: 02/05/20 07:20 Dose: 2 units Documented by: Isosorbide Mononitrate (Imdur) 60 mg PO DAILY [facility] Last Admin: 02/05/20 10:42 Dose: 60 mg Documented by: Metoprolol Tartrate (Lopressor) 100 mg PO BIDMEALS [facility] Last Admin: 02/05/20 10:41 Dose: 100 mg Documented by: Ondansetron HCl (Zofran) 4 mg IVPUSH Q6H PRN PRN Reason: Nausea/Vomiting Rivaroxaban (Xarelto) 20 mg PO DAILY [facility] Last Admin: 02/05/20 10:42 Dose: 20 mg Documented by: Simvastatin (Zocor) 40 mg PO BEDTIME [facility] Sodium Chloride (Saline Flush) 10 ml FLUSH ASDIRECTED PRN PRN Reason: Keep Vein Open Sodium Chloride (Saline Flush) 2.5 ml FLUSH ASDIRECTED PRN PRN Reason: Keep Vein Open Tolterodine Tartrate (Detrol La 24 Hr) 4 mg PO BEDTIME [facility] Discontinued Medications Ceftriaxone Sodium/Dextrose 1 (gm/ Premix) 50 mls @ 100 mls/hr IV ONETIME ONE Stop: 02/04/20 17:37 Last Admin: 02/04/20 18:13 Dose: 100 mls/hr Documented by: Sodium Chloride (Normal Saline) 500 mls @ 999 mls/hr IV STAT [facility] Last Admin: 02/04/20 18:12 Dose: 999 mls/hr Documented by: Sodium Chloride (Normal Saline) 1,000 mls @ 50 mls/hr IV ASDIRECTED [facility] Stop: 02/06/20 16:14 Last Admin: 02/04/20 20:46 Dose: 50 mls/hr Documented by: Metoprolol Tartrate (Lopressor) 100 mg PO ONETIME ONE Stop: 02/04/20 21:49 Last Admin: 02/04/20 22:05 Dose: 100 mg Documented by: - Exam General: Alert, Moderate Distress Neck: Supple Lungs: Clear to Auscultation, Normal Respiratory Effort Cardiovascular: Regular Rate, Regular Rhythm GI/Abdominal Exam: Soft, Non-Tender, No Distention Skin: Warm, Dry, Intact Neurological: No New Focal Deficit Sepsis Event Note - Evaluation Sepsis Screening Result: No Definite Risk - Focused Exam Vital Signs: Vital Signs Temp Temp Pulse Pulse Resp BP BP 02/05/20 10:42 122/79 02/05/20 10:41 74 122/79 02/05/20 10:00 35.8 C L 74 16 122/79 02/05/20 04:00 36.6 C 72 16 136/65 Pulse Ox 02/05/20 10:42 02/05/20 10:41 02/05/20 10:00 92 L 02/05/20 04:00 92 L - Problem List Review Problem List Initiated/Reviewed/Updated: Yes - My Orders Last 24 Hours: My Active Orders 02/04/20 18:49 Telemetry Monitoring [Cardiac Monitoring] [RC] Q8H 02/04/20 20:02 Ondansetron [Zofran] 4 mg IVPUSH Q6H PRN 02/04/20 20:03 Vital Signs [RC] Q4H 02/04/20 23:24 Accu Check [Blood Glucose Check, Bedside] [RC] TIDAC 02/04/20 23:55 Oxygen Therapy [RC] PRN VTE/DVT Education [RC] PER UNIT ROUTINE Resuscitation Status Routine 02/05/20 Breakfast [employer] Diet [DIET] 02/05/20 07:30 Insulin Aspart [NovoLOG] See Protocol SUBCUT TIDAC 02/05/20 08:00 Metoprolol Tartrate [Lopressor] 100 mg PO BIDMEALS 02/05/20 10:00 Glimepiride [Amaryl] 2 mg PO DAILY Isosorbide Mononitrate [Imdur] 60 mg PO DAILY Rivaroxaban [Xarelto] 20 mg PO DAILY amLODIPine [Norvasc] 5 mg PO BID 02/05/20 18:00 cefTRIAXone [Rocephin in Dextrose,Iso-Osm 1 GM/50 ML] 50 ml IV Q24H 02/05/20 21:00 Donepezil [Aricept] 10 mg PO BEDTIME Simvastatin [Zocor] 40 mg PO BEDTIME Tolterodine [Detrol LA 24 Hr] 4 mg PO BEDTIME 02/06/20 05:11 BASIC METABOLIC PANEL,BMP [CHEM] AM CBC WITH AUTO DIFF [HEME] AM INR,PT,PROTHROMBIN TIME [COAG] AM 02/07/20 05:11 INR,PT,PROTHROMBIN TIME [COAG] AM 02/08/20 05:11 INR,PT,PROTHROMBIN TIME [COAG] AM - Plan Plan:: 84 yo male admitted for COVID infection. CXR showed right lower lung infiltrate. Treating with Rocephin and azithromycin for possible pneumonia. If continues to improve anticipate discharge home tomorrow.
[2020-02-05] MEDS ORDERED: cefTRIAXone 1 GM in Sodium Chloride 0.9% 50 ML IV SCH (17:00)
[2020-02-05] MEDS: Tolterodine 2 MG Cap.ER PO SCH (21:45)
[2020-02-05] MEDS: Simvastatin 40 MG Tab PO SCH (21:45)
[2020-02-05] MEDS: Donepezil 10 MG Tab PO SCH (21:45)
[2020-02-06 06:30] LABS: BLOOD UREA NITROGEN,BUN 19 mg/dL (7.0-18.0); CARBON DIOXIDE,CO2 28.2 mmol/L (21.0-32.0); CHLORIDE,CL 107 mmol/L (98-107); GLUCOSE RANDOM 157 mg/dL (74-106); POTASSIUM,K 2.8 mmol/L (3.5-5.1); SODIUM,NA 143 mmol/L (136-148)
[2020-02-06] MEDS: Insulin Aspart 100 Units/ML 3 ML Pen SUBCUT SCH ×3 (09:42→17:24)
[2020-02-06] MEDS: Rivaroxaban 10 MG Tab PO SCH (09:43)
[2020-02-06] MEDS: amLODIPine 5 MG Tab PO SCH ×2 (09:43→20:19)
[2020-02-06] MEDS: Isosorbide Mononitrate 60 MG Tab.ER PO SCH (09:43)
[2020-02-06] MEDS: Glimepiride 2 MG Tab PO SCH (09:44)
[2020-02-06] MEDS: Metoprolol Tartrate 25 MG Tab PO SCH ×2 (09:44→17:22)
[2020-02-06] MEDS ORDERED: Potassium Chloride 20 MEQ Tab.ER PO ONE ×2 (11:42→11:49)
[2020-02-06] MEDS ORDERED: Sodium Chloride 0.9% with KCl 1,000 ML IV SCH (11:45)
--- NOTE | 2020-02-06 11:51 | PCM.PN ---
- General Info Date of Service: 02/06/20 - Review of Systems Systems Review Comment:: feeling well, diarrhea improving - Patient Data Vitals - Most Recent: Last Vital Signs Temp 36.1 C 02/06/20 04:00 Pulse 94 02/06/20 09:44 Resp 18 02/06/20 09:00 BP 132/88 02/06/20 09:44 Pulse Ox 94 L 02/06/20 09:00 Weight - Most Recent: 108.862 kg I&O - Last 24 Hours: Intake & Output 02/05/20 02/06/20 02/06/20 22:59 06:59 14:59 Intake Total 400 Balance 400 Lab Results Last 24 Hours: Laboratory Results - last 24 hr 02/05/20 02/05/20 02/05/20 Range/Units 05:58 13:26 17:42 WBC (4.0-11.0) K/uL RBC (4.50-5.90) M/uL Hgb (13.0-17.0) g/dL Hct (38.0-50.0) % MCV (80.0-98.0) fL MCH (27.0-32.0) pg MCHC (31.0-37.0) g/dL RDW Std Deviation (28.0-62.0) fl RDW Coeff of Heidi (11.0-15.0) % Plt Count (150-400) K/uL MPV (7.40-12.00) fL Neut % (Auto) (48.0-80.0) % Lymph % (Auto) (16.0-40.0) % Irwin % (Auto) (0.0-15.0) % Eos % (Auto) (0.0-7.0) % Baso % (Auto) (0.0-1.5) % Neut # (Auto) (1.4-5.7) K/uL Lymph # (Auto) (0.6-2.4) K/uL Irwin # (Auto) (0.0-0.8) K/uL Eos # (Auto) (0.0-0.7) K/uL Baso # (Auto) (0.0-0.1) K/uL Nucleated RBC % /100WBC Nucleated RBCs # K/uL INR Sodium (136-148) mmol/L Potassium (3.5-5.1) mmol/L Chloride (98-107) mmol/L Carbon Dioxide (21.0-32.0) mmol/L BUN (7.0-18.0) mg/dL Creatinine (0.8-1.3) mg/dL Est Cr Clr Drug Dosing mL/min Estimated GFR (MDRD) ml/min Glucose (74-106) mg/dL POC Glucose 253 H 275 H (60-110) mg/dL Calcium (8.5-10.1) mg/dL Magnesium 2.2 (1.8-2.4) mg/dL 02/06/20 02/06/20 02/06/20 Range/Units 05:25 05:25 05:25 WBC 5.52 (4.0-11.0) K/uL RBC 4.19 L (4.50-5.90) M/uL Hgb 13.5 (13.0-17.0) g/dL Hct 40.0 (38.0-50.0) % MCV 95.5 (80.0-98.0) fL MCH 32.2 H (27.0-32.0) pg MCHC 33.8 (31.0-37.0) g/dL RDW Std Deviation 44.4 (28.0-62.0) fl RDW Coeff of Heidi 13 (11.0-15.0) % Plt Count 203 (150-400) K/uL MPV 11.60 (7.40-12.00) fL Neut % (Auto) 68.7 (48.0-80.0) % Lymph % (Auto) 19.0 (16.0-40.0) % Irwin % (Auto) 10.3 (0.0-15.0) % Eos % (Auto) 1.6 (0.0-7.0) % Baso % (Auto) 0.4 (0.0-1.5) % Neut # (Auto) 3.8 (1.4-5.7) K/uL Lymph # (Auto) 1.1 (0.6-2.4) K/uL Irwin # (Auto) 0.6 (0.0-0.8) K/uL Eos # (Auto) 0.1 (0.0-0.7) K/uL Baso # (Auto) 0.0 (0.0-0.1) K/uL Nucleated RBC % 0.0 /100WBC Nucleated RBCs # 0 K/uL INR 1.28 Sodium 143 (136-148) mmol/L Potassium 2.8 L (3.5-5.1) mmol/L Chloride 107 (98-107) mmol/L Carbon Dioxide 28.2 (21.0-32.0) mmol/L BUN 19 H (7.0-18.0) mg/dL Creatinine 1.0 (0.8-1.3) mg/dL Est Cr Clr Drug Dosing 58.81 mL/min Estimated GFR (MDRD) > 60.0 ml/min Glucose 157 H (74-106) mg/dL POC Glucose (60-110) mg/dL Calcium 8.1 L (8.5-10.1) mg/dL Magnesium (1.8-2.4) mg/dL 02/06/20 Range/Units 06:34 WBC (4.0-11.0) K/uL RBC (4.50-5.90) M/uL Hgb (13.0-17.0) g/dL Hct (38.0-50.0) % MCV (80.0-98.0) fL MCH (27.0-32.0) pg MCHC (31.0-37.0) g/dL RDW Std Deviation (28.0-62.0) fl RDW Coeff of Heidi (11.0-15.0) % Plt Count (150-400) K/uL MPV (7.40-12.00) fL Neut % (Auto) (48.0-80.0) % Lymph % (Auto) (16.0-40.0) % Irwin % (Auto) (0.0-15.0) % Eos % (Auto) (0.0-7.0) % Baso % (Auto) (0.0-1.5) % Neut # (Auto) (1.4-5.7) K/uL Lymph # (Auto) (0.6-2.4) K/uL Irwin # (Auto) (0.0-0.8) K/uL Eos # (Auto) (0.0-0.7) K/uL Baso # (Auto) (0.0-0.1) K/uL Nucleated RBC % /100WBC Nucleated RBCs # K/uL INR Sodium (136-148) mmol/L Potassium (3.5-5.1) mmol/L Chloride (98-107) mmol/L Carbon Dioxide (21.0-32.0) mmol/L BUN (7.0-18.0) mg/dL Creatinine (0.8-1.3) mg/dL Est Cr Clr Drug Dosing mL/min Estimated GFR (MDRD) ml/min Glucose (74-106) mg/dL POC Glucose 153 H (60-110) mg/dL Calcium (8.5-10.1) mg/dL Magnesium (1.8-2.4) mg/dL Med Orders - Current: Current Medications Amlodipine Besylate (Norvasc) 5 mg PO BID [facility] Last Admin: 02/06/20 09:43 Dose: 5 mg Documented by: Donepezil HCl (Aricept) 10 mg PO BEDTIME [facility] Last Admin: 02/05/20 21:45 Dose: 10 mg Documented by: Ceftriaxone Sodium/Dextrose (Rocephin In Dextrose,Iso-Osm 1 Gm/50 Ml) 50 mls @ 100 mls/hr IV Q24H [facility] Last Admin: 02/05/20 17:50 Dose: 100 mls/hr Documented by: Insulin Aspart (Novolog) 0 unit SUBCUT TIDAC [facility]; Protocol Last Admin: 02/06/20 09:42 Dose: 1 units Documented by: Isosorbide Mononitrate (Imdur) 60 mg PO DAILY [facility] Last Admin: 02/06/20 09:43 Dose: 60 mg Documented by: Metoprolol Tartrate (Lopressor) 100 mg PO BIDMEALS [facility] Last Admin: 02/06/20 09:44 Dose: 100 mg Documented by: Ondansetron HCl (Zofran) 4 mg IVPUSH Q6H PRN PRN Reason: Nausea/Vomiting Rivaroxaban (Xarelto) 20 mg PO DAILY [facility] Last Admin: 02/06/20 09:43 Dose: 20 mg Documented by: Simvastatin (Zocor) 40 mg PO BEDTIME [facility] Last Admin: 02/05/20 21:45 Dose: 40 mg Documented by: Sodium Chloride (Saline Flush) 10 ml FLUSH ASDIRECTED PRN PRN Reason: Keep Vein Open Sodium Chloride (Saline Flush) 2.5 ml FLUSH ASDIRECTED PRN PRN Reason: Keep Vein Open Tolterodine Tartrate (Detrol La 24 Hr) 4 mg PO BEDTIME [facility] Last Admin: 02/05/20 21:45 Dose: 4 mg Documented by: Discontinued Medications Glimepiride (Amaryl) 2 mg PO DAILY [facility] Last Admin: 02/06/20 09:44 Dose: 2 mg Documented by: Ceftriaxone Sodium/Dextrose 1 (gm/ Premix) 50 mls @ 100 mls/hr IV ONETIME ONE Stop: 02/04/20 17:37 Last Admin: 02/04/20 18:13 Dose: 100 mls/hr Documented by: Sodium Chloride (Normal Saline) 500 mls @ 999 mls/hr IV STAT [facility] Last Admin: 02/04/20 18:12 Dose: 999 mls/hr Documented by: Sodium Chloride (Normal Saline) 1,000 mls @ 50 mls/hr IV ASDIRECTED [facility] Stop: 02/06/20 16:14 Last Admin: 02/04/20 20:46 Dose: 50 mls/hr Documented by: Potassium Chloride/Sodium Chloride (Normal Saline With 40 Meq Kcl) 1,000 mls @ 150 mls/hr IV ASDIRECTED [facility] Stop: 02/06/20 18:24 Metoprolol Tartrate (Lopressor) 100 mg PO ONETIME ONE Stop: 02/04/20 21:49 Last Admin: 02/04/20 22:05 Dose: 100 mg Documented by: Potassium Chloride (Klor-Con M20) 40 meq PO ONETIME ONE Stop: 02/06/20 11:43 - Exam General: Alert, Oriented Neck: Supple Lungs: Clear to Auscultation, Normal Respiratory Effort Cardiovascular: Regular Rate, Regular Rhythm Skin: Warm, Dry, Intact Neurological: No New Focal Deficit Sepsis Event Note - Evaluation Sepsis Screening Result: No Definite Risk - Focused Exam Vital Signs: Vital Signs Temp Pulse Pulse Resp BP BP Pulse Ox 02/06/20 09:44 94 132/88 02/06/20 09:43 132/88 02/06/20 09:00 86 18 132/88 94 L 02/06/20 04:00 36.1 C 87 20 154/79 H 92 L 02/06/20 00:17 36.3 C 75 20 119/62 92 L - Problem List Review Problem List Initiated/Reviewed/Updated: Yes - My Orders Last 24 Hours: My Active Orders 02/05/20 18:00 cefTRIAXone [Rocephin in Dextrose,Iso-Osm 1 GM/50 ML] 50 ml IV Q24H 02/05/20 21:00 Donepezil [Aricept] 10 mg PO BEDTIME Simvastatin [Zocor] 40 mg PO BEDTIME Tolterodine [Detrol LA 24 Hr] 4 mg PO BEDTIME 02/06/20 11:43 MAGNESIUM [CHEM] Routine 02/06/20 11:49 Potassium Chloride [Klor-Con M20] 20 meq PO ONETIME ONE 02/06/20 19:00 BASIC METABOLIC PANEL,BMP [CHEM] Routine 02/07/20 05:11 INR,PT,PROTHROMBIN TIME [COAG] AM 02/08/20 05:11 INR,PT,PROTHROMBIN TIME [COAG] AM - Plan Plan:: 84 yo male admitted for COVID infection. CXR showed right lower lung infiltrate. Treating with Rocephin for possible pneumonia but less likely bacterial. Patient is hypokalemic so will replace electrolytes. If continues to improve plan on discharge home tomorrow.
[2020-02-06 19:32] LABS: BLOOD UREA NITROGEN,BUN 19 mg/dL (7.0-18.0); CARBON DIOXIDE,CO2 28.7 mmol/L (21.0-32.0); CHLORIDE,CL 104 mmol/L (98-107); GLUCOSE RANDOM 265 mg/dL (74-106); POTASSIUM,K 3.7 mmol/L (3.5-5.1); SODIUM,NA 139 mmol/L (136-148)
[2020-02-06] MEDS: Tolterodine 2 MG Cap.ER PO SCH (20:19)
[2020-02-06] MEDS: Donepezil 10 MG Tab PO SCH (20:19)
[2020-02-06] MEDS: Simvastatin 40 MG Tab PO SCH (20:19)
[2020-02-07] MEDS ORDERED: Metoprolol Tartrate 50 MG Tab PO SCH (08:00)
[2020-02-07] MEDS: Rivaroxaban 10 MG Tab PO SCH (08:27)
[2020-02-07] MEDS: Isosorbide Mononitrate 60 MG Tab.ER PO SCH (08:27)
[2020-02-07] MEDS: amLODIPine 5 MG Tab PO SCH (08:27)
[2020-02-07] MEDS: Insulin Aspart 100 Units/ML 3 ML Pen SUBCUT SCH (09:42)
--- NOTE | 2020-02-07 11:32 | PCM.DCSUM1 ---
Discharge Summary - Discharge Data Discharge Date: 02/07/20 Discharge Disposition: Home, Self-Care 01 Condition: Stable - Referral to Home Health Primary Care Physician: Rohan Long MD - Patient Summary/Data Hospital Course: 84 yo male with pmh of DM, CAD, CHF, a.fib who presents with several day history of fatigue, generalized weakness, and diarrhea. Patient denies any fevers, cough, shortness of breath, nausea or chest pain. Patient's has COVID. In the ER patient was noted to be satting 96% on RA. Chest x-ray showed right lower lung infiltrate. PAtient was admitted for COVID-19 Patient was treated with Rocephin for possible bacterial lung infection. Patient was treated supportively with IV fluids the first day due to nausea. He did have improvement in his symptoms and today he is eager for discharge. Patient will continue isolation at home. He is to follow up with [facility]. - Patient Instructions Diet: Usual Diet as Tolerated Activity: As Tolerated Driving: Do Not Drive - Discharge Plan Home Medications: Home Meds Furosemide [Lasix] 40 mg PO DAILY@0900,1200 11/30/13 [History] Glimepiride [Amaryl] 2 mg PO DAILY 11/30/13 [History] Isosorbide Mononitrate [Isosorbide Mononitrate ER] 60 mg PO DAILY 11/30/13 [History] Simvastatin [Zocor] 40 mg PO BEDTIME 11/30/13 [History] amLODIPine Besylate [Amlodipine Besylate] 5 mg PO BID 11/30/13 [History] Famotidine 40 mg PO BEDTIME 07/28/15 [History] Donepezil [Aricept] 10 mg PO BEDTIME 08/03/17 [History] Metoprolol Tartrate 100 mg PO BIDMEALS 08/03/17 [History] Tolterodine Tartrate [Tolterodine Tartrate ER] 4 mg PO BEDTIME 06/25/19 [History] Rivaroxaban [Xarelto] 20 mg PO DAILY 02/05/20 [History] Referrals: Gurwinder Mak MD [Physician] - 02/24/20 9:30 am (Due to his schedule, an appointment could not be made with Dr. Long.) Rohan Long MD [Primary Care Provider] - - Discharge Summary/Plan Comment DC Time >30 min.: No - Patient Data Vitals - Most Recent: Last Vital Signs Temp 35.8 C L 02/07/20 08:04 Pulse 87 02/07/20 08:47 Resp 20 02/07/20 08:04 BP 150/77 H 02/07/20 08:47 Pulse Ox 93 L 02/07/20 08:04 Weight - Most Recent: 108.862 kg I&O - Last 24 hours: Intake & Output 02/06/20 02/07/20 02/07/20 22:59 06:59 14:59 Intake Total 800 Balance 800 Lab Results - Last 24 hrs: Laboratory Results - last 24 hr 02/06/20 02/06/20 02/06/20 Range/Units 05:25 13:35 17:16 INR Sodium (136-148) mmol/L Potassium (3.5-5.1) mmol/L Chloride (98-107) mmol/L Carbon Dioxide (21.0-32.0) mmol/L BUN (7.0-18.0) mg/dL Creatinine (0.8-1.3) mg/dL Est Cr Clr Drug Dosing mL/min Estimated GFR (MDRD) ml/min Glucose (74-106) mg/dL POC Glucose 200 H 260 H (60-110) mg/dL Calcium (8.5-10.1) mg/dL Magnesium 1.9 (1.8-2.4) mg/dL 02/06/20 02/07/20 02/07/20 Range/Units 19:09 06:05 06:31 INR 1.29 Sodium 139 (136-148) mmol/L Potassium 3.7 (3.5-5.1) mmol/L Chloride 104 (98-107) mmol/L Carbon Dioxide 28.7 (21.0-32.0) mmol/L BUN 19 H (7.0-18.0) mg/dL Creatinine 1.1 (0.8-1.3) mg/dL Est Cr Clr Drug Dosing 53.46 mL/min Estimated GFR (MDRD) > 60.0 ml/min Glucose 265 H (74-106) mg/dL POC Glucose 155 H (60-110) mg/dL Calcium 8.2 L (8.5-10.1) mg/dL Magnesium (1.8-2.4) mg/dL Med Orders - Current: Current Medications Amlodipine Besylate (Norvasc) 5 mg PO BID [facility] Last Admin: 02/07/20 08:27 Dose: 5 mg Documented by: Donepezil HCl (Aricept) 10 mg PO BEDTIME [facility] Last Admin: 02/06/20 20:19 Dose: 10 mg Documented by: Ceftriaxone Sodium/Dextrose (Rocephin In Dextrose,Iso-Osm 1 Gm/50 Ml) 50 mls @ 100 mls/hr IV Q24H [facility] Last Admin: 02/06/20 20:18 Dose: 100 mls/hr Documented by: Insulin Aspart (Novolog) 0 unit SUBCUT TIDAC [facility]; Protocol Last Admin: 02/07/20 09:42 Dose: 1 units Documented by: Isosorbide Mononitrate (Imdur) 60 mg PO DAILY [facility] Last Admin: 02/07/20 08:27 Dose: 60 mg Documented by: Metoprolol Tartrate (Lopressor) 100 mg PO BIDMEALS [facility] Last Admin: 02/07/20 08:47 Dose: 100 mg Documented by: Ondansetron HCl (Zofran) 4 mg IVPUSH Q6H PRN PRN Reason: Nausea/Vomiting Rivaroxaban (Xarelto) 20 mg PO DAILY [facility] Last Admin: 02/07/20 08:27 Dose: 20 mg Documented by: Simvastatin (Zocor) 40 mg PO BEDTIME [facility] Last Admin: 02/06/20 20:19 Dose: 40 mg Documented by: Sodium Chloride (Saline Flush) 10 ml FLUSH ASDIRECTED PRN PRN Reason: Keep Vein Open Sodium Chloride (Saline Flush) 2.5 ml FLUSH ASDIRECTED PRN PRN Reason: Keep Vein Open Tolterodine Tartrate (Detrol La 24 Hr) 4 mg PO BEDTIME [facility] Last Admin: 02/06/20 20:19 Dose: 4 mg Documented by: Discontinued Medications Glimepiride (Amaryl) 2 mg PO DAILY [facility] Last Admin: 02/06/20 09:44 Dose: 2 mg Documented by: Ceftriaxone Sodium/Dextrose 1 (gm/ Premix) 50 mls @ 100 mls/hr IV ONETIME ONE Stop: 02/04/20 17:37 Last Admin: 02/04/20 18:13 Dose: 100 mls/hr Documented by: Sodium Chloride (Normal Saline) 500 mls @ 999 mls/hr IV STAT [facility] Last Admin: 02/04/20 18:12 Dose: 999 mls/hr Documented by: Sodium Chloride (Normal Saline) 1,000 mls @ 50 mls/hr IV ASDIRECTED [facility] Stop: 02/06/20 16:14 Last Admin: 02/04/20 20:46 Dose: 50 mls/hr Documented by: Potassium Chloride/Sodium Chloride (Normal Saline With 40 Meq Kcl) 1,000 mls @ 150 mls/hr IV ASDIRECTED [facility] Stop: 02/06/20 18:24 Metoprolol Tartrate (Lopressor) 100 mg PO BIDMEALS [facility] Last Admin: 02/06/20 17:22 Dose: 100 mg Documented by: Metoprolol Tartrate (Lopressor) 100 mg PO ONETIME ONE Stop: 02/04/20 21:49 Last Admin: 02/04/20 22:05 Dose: 100 mg Documented by: Potassium Chloride (Klor-Con M20) 40 meq PO ONETIME ONE Stop: 02/06/20 11:43 Last Admin: 02/06/20 12:31 Dose: 40 meq Documented by: Potassium Chloride (Klor-Con M20) 20 meq PO ONETIME ONE Stop: 02/06/20 11:50 Last Admin: 02/06/20 12:31 Dose: 20 meq Documented by:
[2020-02-07 12:04] VITALS: BP 136/68; PULSE 82
== END 2020-02-07 14:00 | disposition home or self-care (01) | DRG 177 ==
LOC: MW.ED 14:28 → MW.MS 18:06
PROVIDERS: ADMIT Internal Medicine; ATTEND Internal Medicine
DX: U07.1 COVID-19 (principal); J12.89 Other viral pneumonia; E11.9 Type 2 diabetes mellitus without complications; I11.0 Hypertensive heart disease with heart failure; H91.93 Unspecified hearing loss, bilateral; I25.10 Atherosclerotic heart disease of native coronary artery without angina pectoris; I50.9 Heart failure, unspecified; I10 Essential (primary) hypertension; I48.91 Unspecified atrial fibrillation; N42.9 Disorder of prostate, unspecified; H54.7 Unspecified visual loss; E78.00 Pure hypercholesterolemia, unspecified; Z88.8 Allergy status to other drugs, medicaments and biological substances; E86.0 Dehydration; E87.6 Hypokalemia; Z79.82 Long term (current) use of aspirin; B96.89 Other specified bacterial agents as the cause of diseases classified elsewhere; Z79.899 Other long term (current) drug therapy; Z88.1 Allergy status to other antibiotic agents; Z79.84 Long term (current) use of oral hypoglycemic drugs; Z97.4 Presence of external hearing-aid; Z95.5 Presence of coronary angioplasty implant and graft; Z85.46 Personal history of malignant neoplasm of prostate; Z79.01 Long term (current) use of anticoagulants
CPT/HCPCS: 36415; 71045; 80053; 83735; 84484; 85025; 85610; 93005; 99285; U0002; 80048; 82962; 99222; 99231; 99238; A9270-GY; J0696; J1815-GY; J7030; J7040